=== PATIENT | female | born 1985 | race Caucasian/White ===

== ENCOUNTER → 2017-10-30 11:00 | Outpatient (CLI) | payer BC, SELFPAY ==
[2017-10-30 10:37] LABS: Hematocrit 36.7 % (37-47); Hemoglobin 12.3 g/dl (12.0-15.0); Mean Corp Hgb Conc 33.5 g/gl (32-36); Mean Corpuscular Hgb 31.9 pg (27.0-32.0); Mean Corpuscular Volume 95.3 fL (81-99); Mean Platelet Vol. 9.8 fl (6.2-12.0); Platelet Count 327 K/mm3 (150-450); RBC Distribution Width CV 13.8 % (11.6-14.6); RBC Distribution Width SD 46.2 fl (35.1-43.9); Red Blood Count 3.85 M/mm3 (4.2-5.4); Scan Indicated on CBC? Y/N NO; White Blood Count 8.9 K/mm3 (4.4-11.0)
[2017-10-30 10:56] LABS: Free T3 2.2 pg/mL (2.18-3.98); Glucose Challenge Gest 1H 50g 92 mg/dL (70-140); T4 Free Direct 0.76 ng/dL (0.76-1.46); Thyroid Stim Hormone (TSH) 3.85 uIU/mL (0.358-3.74)
== END ==
PROVIDERS: Family Provider Family Medicine; PCP Family Medicine; Visit Provider Obstetrics & Gynecology
DX: Z34.83 Encounter for supervision of other normal pregnancy, third trimester (principal)
CPT/HCPCS: 36415; 82950; 84439; 84443; 84481; 85027

== ENCOUNTER → 2017-12-24 16:30 | Outpatient (CLI) | payer BC, SELFPAY ==
--- NOTE | 2017-12-24 16:30 | DT_ITS ---
This patient was seen during an EMR downtime December 22, 2017 - December 29, 2017. This patient may have a combination of paper and electronic documentation or all paper documentation. All documentation is viewable within the e-chart portion of [facility] for each patient visit.
[2017-12-27 09:32] LABS: Group B Strep DNA By PCR Negative (Negative); Internal Control PASS; Probe Check PASS; Specimen Processing Control PASS
== END ==
PROVIDERS: Family Provider Family Medicine; PCP Family Medicine; Visit Provider Obstetrics & Gynecology
DX: Z34.83 Encounter for supervision of other normal pregnancy, third trimester (principal)
CPT/HCPCS: 87081; 87653

== ENCOUNTER 2018-01-17 22:18 | Inpatient (IN) | payer BC, SELFPAY ==
[2018-01-17] MEDS: Lactated Ringers 1,000 ML 50 ML IV (22:45)
[2018-01-17] MEDS: Oxytocin 30 units/NS 500 ml 30 UNITS/500 ML IV.SOLN 334 UNITS IV (23:09)
[2018-01-17 23:10] LABS: Hematocrit 37.9 % (37-47); Hemoglobin 13.2 g/dl (12.0-15.0); Mean Corp Hgb Conc 34.8 g/gl (32-36); Mean Corpuscular Hgb 32.3 pg (27.0-32.0); Mean Corpuscular Volume 92.7 fL (81-99); Mean Platelet Vol. 10.8 fl (6.2-12.0); Platelet Count 263 K/mm3 (150-450); RBC Distribution Width CV 13.4 % (11.6-14.6); RBC Distribution Width SD 44.6 fl (35.1-43.9); Red Blood Count 4.09 M/mm3 (4.2-5.4); White Blood Count 11.1 K/mm3 (4.4-11.0)
[2018-01-17 23:13] LABS: Scan Indicated on CBC? Y/N NO
--- NOTE | 2018-01-17 23:20 | PCM.OB.VAG ---
Vaginal Delivery Maternal Presentation: Active Labor, Spontaneous Rupture of Membranes Amniotic Membrane Rupture Type: Spontaneous at home Amniotic Fluid Description: Clear Final JARED: 01/22/18 Final JARED Source: US <20 weeks Gestational age: 39 Weeks and 2 Days Date of Procedure: 01/17/18 Pre-Operative Diagnosis: IUP Post-Operative Diagnosis: IUP Surgery/ Procedure Performed: Spontaneous Vaginal Delivery Type of Anesthesia: None Description of Procedure: Spontaneous vaginal delivery of a viable female from an occiput anterior presentation with clear amniotic fluid and normal three-vessel placenta. Cord around the neck ?1 tight. No episiotomy or laceration. Sponge counts okay. Delivery physician: Jair Zapata MD. Presentation: Vertex Placental Delivery Description: Spontaneous Placenta Disposition: [facility] Cord Vessel Description: 3 Vessels Cord Gases drawn per routine: ABG Cord Entanglement: Around neck x 1, tight Estimated Blood Loss: 250 cc Infant A gender: Female (1 minute): 8 (5 minute): 9 Episiotomy Description: None Laceration: None Medications given after delivery: IV Pitocin Complications: None
--- NOTE | 2018-01-17 23:24 | DCINST_ITS ---
Discharge Diet: No Restrictions Discharge Activity: May Shower, May Take a Tub Bath May resume sexual activity in: 4-6 weeks Additional Activity Instructions:: Nothing in the vagina for 4-6 weeks. You may return to work/school in 6 weeks. Call your doctor if you observe: Fever of 101 or Higher, Inability to urinate, Inability to have a bowel movement, Using more than one pad per hour Additional Instructions: If you experience any of the following, contact your healthcare provider. * Bleeding that soaks a pad every hour for 2 hours * Unrelieved incision or abdominal pain * Swelling, redness, discharge or bleeding from your incision or episiotomy site * Your incision begins to separate * Problems urinating (including inability to urinate or burning while urinating) . * Visual changes * Severe headache * Flu-like symptoms * Pain or redness in one of both of your breasts * Pain, warmth, tenderness or swelling in your legs, especially the calf area * Frequent nausea and vomiting * Symptoms of depression or anxiety If you experience any of the following, call 911 or go to the nearest Emergency Room. * Chest pain * Problems breathing * Seizure activity * Partial or complete paralysis of a body part, slurred speech, weakness or drooping of the face, or a sudden inability to walk or hold your balance Allergies/Adverse Reactions: Allergies No Known Allergies Allergy (Verified 06/05/15 02:49) Medications to take at Discharge Pantoprazole Sodium [Protonix] 20 mg PO QODAY 12/01/14 Docusate Sodium [Colace] 100 mg PO BID PRN PRN #30 capsule 06/05/15 Naproxen [Naprosyn] 1 - 2 tab PO BID PRN PRN #40 tablet 06/05/15 Vits [Prenatabs FA] 1 tablet PO DAILY 06/05/15 Ibuprofen [Motrin] 800 mg PO Q6H #60 tablet 06/07/15 Please Follow Up With: Fco Giraldo MD - [phone] When: Call to make an appointment with your doctor in 6 weeks. Primary Care Physician: Mir Méndez [Primary Care Provider] -
[2018-01-17] MEDS: Oxytocin 30 units/NS 500 ml 30 UNITS/500 ML IV.SOLN 167 UNITS IV (23:39)
[2018-01-18 00:38] VITALS: BMI 41.3
[2018-01-18 02:11] VITALS: BP 129/62; PULSE 70; RESP 18; TEMP 36.6; O2SAT 97
[2018-01-18 05:00] VITALS: BP 121/65; PULSE 72; RESP 18; TEMP 36.3; O2SAT 98
[2018-01-18 08:55] VITALS: BP 113/57; PULSE 85; RESP 16; TEMP 36.4; O2SAT 96
--- NOTE | 2018-01-18 09:20 | PCM.PN.OB ---
Subjective: Patient without complaints. Breast-feeding going well. - Physical Exam Vital Signs Temp Pulse Resp BP Pulse Ox 97.6 F L 85 16 113/57 L 96 01/18/18 08:55 01/18/18 08:55 01/18/18 08:55 01/18/18 08:55 01/18/18 08:55 Oxygen Delivery Method Room Air Weight: 267 lb 13.786 oz Body Mass Index (BMI) 41.3 Intake and Output for Last 24 Hours 01/16/18 01/17/18 01/18/18 23:59 23:59 23:59 Intake Total 1117 / 1117 Output Total 600 / 600 Balance 517 / 517 Laboratory Tests Past 24 Hrs 01/17/18 01/17/18 22:45 22:45 WBC 11.1 H RBC 4.09 L Hgb 13.2 Hct 37.9 MCV 92.7 MCH 32.3 H MCHC 34.8 RDW 13.4 RDW Differential 44.6 H Plt Count 263 MPV 10.8 Blood Type O POSITIVE Antibody Screen NEGATIVE Medical Necessity - Tobacco Use Smoking Status: Never smoker Assessment/Plan Doing well day #1. Continuing present care.
[2018-01-18 13:07] VITALS: BP 121/64; PULSE 80; RESP 16; TEMP 36.4; O2SAT 100
[2018-01-18 16:00] VITALS: BP 121/74; PULSE 80; RESP 18; TEMP 36.3; O2SAT 98
[2018-01-18 20:20] VITALS: BP 114/55; PULSE 77; RESP 18; TEMP 36.4
[2018-01-19 02:15] VITALS: BP 113/69; PULSE 75; RESP 20; TEMP 37
[2018-01-19 08:14] VITALS: BP 120/62; PULSE 86; RESP 16; TEMP 36.3; O2SAT 96
[2018-01-19] MEDS: Senna/Docusate Sodium 1 Tablet PO (09:59)
--- NOTE | 2018-01-19 10:02 | PCM.PN.OB ---
Subjective: No specific complaints. Breast feeding. Bleeding light Objective: Afeb VSS - Physical Exam General: Alert, Oriented x3, Cooperative, No apparent distress Lungs: Clear to auscultation, Normal air movement Cardiovascular: Regular rate, Regular Rhythm Abdomen: Soft, Non Tender, Non-Distended Extremities: No edema, No Calf Tenderness Skin: No rashes Neurological: Neuro grossly intact Psych/Mental Status: Normal Affect Comment: Lochia light Vital Signs Temp Pulse Resp BP Pulse Ox 97.3 F L 86 16 120/62 96 01/19/18 08:14 01/19/18 08:14 01/19/18 08:14 01/19/18 08:14 01/19/18 08:14 Oxygen Delivery Method Room Air Weight: 267 lb 13.786 oz Body Mass Index (BMI) 41.3 Intake and Output for Last 24 Hours 01/17/18 01/18/18 01/19/18 23:59 23:59 23:59 Intake Total 1117 / 1117 Output Total 600 / 600 Balance 517 / 517 Medical Necessity - Tobacco Use Smoking Status: Never smoker Assessment/Plan Doing well on PP day#2. Cleared for discharge home today. Home going instructions and warnings given.
--- NOTE | 2018-01-19 10:04 | PCM.DC.SUM ---
Discharge Date and Diagnosis Date of Admission: 01/17/18 Date of Discharge: 01/19/18 - Primary Discharge Diagnosis S/P Hospital Course and Treatment Consultations 01/17/18 22:43 Consult: Anesthesia Routine Comment: Reason For Exam: LABOR Operations: None Procedures: - - Summary of Care Provided: The patient is a 32 year old F [admitted in advanced active labor. Progressed rapidly to FD then pushed to deliver a live female without complication. Post course unremarkable. Discharged home on PP day#2.] Discharge Diet: No Restrictions Discharge Activity: May Shower, May Take a Tub Bath May resume sexual activity in: 4-6 weeks Additional Activity Instructions:: Nothing in the vagina for 4-6 weeks. You may return to work/school in 6 weeks. Call your doctor if you observe: Fever of 101 or Higher, Inability to urinate, Inability to have a bowel movement, Using more than one pad per hour Home Medications: Medications to take at Discharge Vits [Prenatabs FA] 1 tablet PO DAILY 06/05/15 Primary Care Physician: Mir Méndez [Primary Care Provider] - Please Follow Up With: Fco Giraldo MD - [phone] When: 6 weeks Disposition: Home Minutes spent on discharge:: 15 Patient Condition:: Good Medical Necessity - Tobacco Use Smoking Status: Never smoker Meaningful Use Info Meaningful Use Diagnoses (Choose all that apply): None applicable
[2018-01-19 14:00] VITALS: BP 129/83; PULSE 81; RESP 16; TEMP 36.3; O2SAT 97
--- NOTE | 2018-01-22 12:04 | NURSING ---
Called mother -mother states everything is going well. Baby nursing well with 4-9 stools and 6-8 wets. states lives in [place] and is going to the breast feeding center in [place] for assistance with sore nipples. Encouraged to seek assistance as needed and offered our services if desired. Mother's bleeding slow to nothing and no signs of high BP. Denies any symptoms of baby blues. Very happy with our services and care
== END 2018-01-19 18:15 | disposition home or self-care (01) | DRG 775 ==
PROVIDERS: Admitting Provider Obstetrics & Gynecology; Family Provider Family Medicine; PCP Family Medicine; Visit Provider Obstetrics & Gynecology
DX: O69.1XX0 Labor and delivery complicated by cord around neck, with compression, not applicable or unspecified (principal); Z3A.39 39 weeks gestation of pregnancy; Z37.0 Single live birth
CPT/HCPCS: 59025; 59050; 85027; 86850; 86900; 99218; J7120; G0378

== ENCOUNTER → 2018-08-19 17:01 | Outpatient (CLI) | payer BC, SELFPAY ==
[2018-08-19 18:00] LABS: Vitamin D,25 Hydroxy 29.4 ng/mL (29.95-100.01)
[2018-08-22 13:09] LABS: HPV HC, High Risk Negative (Negative)
== END ==
PROVIDERS: Visit Provider Obstetrics & Gynecology
DX: E55.9 Vitamin D deficiency, unspecified (principal); Z12.4 Encounter for screening for malignant neoplasm of cervix
CPT/HCPCS: 82306; 87624; 88175; G0145

== ENCOUNTER → 2018-11-05 | Outpatient (CLI) | payer BC, SELFPAY ==
[2018-11-05 16:40] LABS: Chlamydia Trachomatis by PCR Negative (Negative); Neisserai gonorrhoeae by PCR Negative (Negative); Probe Check PASS; Sample Adequacy Control PASS; Specimen Processing Control PASS
== END | disposition home or self-care (01) ==
LOC: LABSPEC 12:04
PROVIDERS: Visit Provider Obstetrics & Gynecology
DX: Z11.3 Encounter for screening for infections with a predominantly sexual mode of transmission (principal)
CPT/HCPCS: 87491; 87591

== ENCOUNTER → 2018-11-18 | Outpatient (CLI) | payer BC, SELFPAY ==
[2018-11-18 17:41] LABS: Absolute Lymphocyte Count 1.97 X10^3/ul (0.83-4.51); Absolute Neutrophil Count 8.6 X10^3/uL (2.0-7.7); Basophil# 0.04 X10^3/uL; Basophil% 0.3 % (0-1); Eosinophil# 0.06 X10^3/uL; Eosinophils% 0.5 % (0-5); Hematocrit 40.1 % (37-47); Hemoglobin 13.6 g/dl (12.0-15.0); Lymphocyte # 1.97 X10^3/ul (4.0); Mean Corp Hgb Conc 33.9 g/gl (32-36); Mean Corpuscular Hgb 30.5 pg (27.0-32.0); Mean Corpuscular Volume 89.9 fL (81-99); Mean Platelet Vol. 9.8 fl (6.2-12.0); Monocyte% 7.8 % (0-10); Neutrophil # 8.59 X10^3/uL (2.7-7.7); Neutrophil % 74.2 % (47-70); POSITIVE COUNT NO; POSITIVE DIFFERENTIAL NO; POSITIVE MORPHOLOGY NO; Platelet Count 425 K/mm3 (150-450); RBC Distribution Width CV 13.1 % (11.6-14.6); RBC Distribution Width SD 42.8 fl (35.1-43.9); Red Blood Count 4.46 M/mm3 (4.2-5.4); White Blood Count 11.6 K/mm3 (4.4-11.0)
[2018-11-18 17:49] LABS: Color, Urine Yellow (Yellow); Glucose, Dipstick Normal (Normal); Ketone-Dipstick Negative (Negative); Leukocyte Esterase-Dipstick 100 /ul (Negative); Nitrite-Dipstick Negative (Negative); Occult Blood-Urine Negative /ul (Negative); Protein-Dipstick Negative (Negative); Urine Bilirubin Dipstick Negative (Negative); Urine Clarity Sl. Cloudy (Clear); Urine Urobilinogen Normal (Normal)
[2018-11-18 18:11] LABS: Amphetamine Urine VISTA NEGATIVE (<1000 ng/mL); Barbiturate Urine VISTA NEGATIVE (< 200 ng/mL); Benzodiazepine Urine VISTA NEGATIVE (< 200 ng/mL); Cocaine Urine VISTA NEGATIVE (< 300 ng/mL); Ecstacy Urine VISTA NEGATIVE (< 500 ng/mL); Methadone Urine VISTA NEGATIVE (< 300 ng/mL); PCP Urine VISTA NEGATIVE (< 25 ng/mL); THC Urine VISTA NEGATIVE (< 50 ng/mL); Vista UDS pH Range 5
[2018-11-18 18:12] LABS: Thyroid Stim Hormone (TSH) 7.43 uIU/mL (0.358-3.74)
[2018-11-18 18:38] LABS: COTININE Drug Screen Negative (<200 ng/mL)
[2018-11-18 18:50] LABS: HIV - WCH Non-Reactive (Nonreactive); Rubella IgG 92.5 IU/mL
[2018-11-19 10:32] LABS: Free T3 2.6 pg/mL (2.18-3.98); T4 Free Direct 0.75 ng/dL (0.76-1.46)
[2018-11-20 01:35] LABS: Prenatal RPR NONREACTIVE (NONREACTIVE)
[2018-11-20 12:23] LABS: HEPATITIS B SURFACE AG Negative (Negative); Hep C Antibodies <0.1 s/co ratio (0.0-0.9)
== END | disposition home or self-care (01) ==
PROVIDERS: Visit Provider Obstetrics & Gynecology
DX: Z34.81 Encounter for supervision of other normal pregnancy, first trimester (principal)
CPT/HCPCS: 36415; 80307; 81002; 84439; 84443; 84481; 85025; 86703; 86762; 86803; 87340

== ENCOUNTER → 2019-01-20 | Outpatient (CLI) | payer BC, SELFPAY ==
[2019-01-20 12:39] LABS: Free T3 2.7 pg/mL (2.18-3.98); T4 Free Direct 0.76 ng/dL (0.76-1.46); Thyroid Stim Hormone (TSH) 7.02 uIU/mL (0.358-3.74)
== END | disposition home or self-care (01) ==
LOC: WOBLAB 11:34
PROVIDERS: Visit Provider Obstetrics & Gynecology
DX: Z34.82 Encounter for supervision of other normal pregnancy, second trimester (principal)
CPT/HCPCS: 36415; 84439; 84443; 84481

== ENCOUNTER 2019-03-28 19:12 | Emergency (ER) | payer BC, SELFPAY ==
[2019-03-28 19:13] VITALS: BP 114/65; PULSE 90; RESP 16; TEMP 36.6; O2SAT 99; BMI 38.2
--- NOTE | 2019-03-28 19:33 | ED.DCSUM_ITS ---
- ER Visit Summary Date of Service: 03/28/19 Chief Complaint: Right leg redness History of Present Illness: The patient is a 33 F who is 27 weeks . She presents with a red area to her proximal right calf for a few days. This is painful and slightly swollen. No history of DVTs. Patient is having movements and no abdominal pain, cramping, discharge, or bleeding. Physical Examination: Patient has an area about the size of her open hand to her right proximal and lateral calf which is erythematous, tender, and slightly indurated. The remainder of her exam is unremarkable. Test Results: Ultrasound is not available at this time. Emergency Department Course and Treatment: The area was marked with a pen. I suspect she may have a cellulitis or early abscess. I also considered thrombus. I suspect this is more likely a superficial thrombus and not a deep venous thrombus, but ultrasound is not available at this time. Since I have low suspicion for DVT, I will refer her for outpatient DVT tomorrow . I placed an order and gave her a paper order as well as the follow-up paperwork. In case this is cellulitis, I will start her on clindamycin. Follow-up with her [employer] for results and for further management. Return if worse or if new symptoms develop. Treatment Plan: As above Disposition: Discharge Impression: Right leg redness This note was generated with [employer] dictation software. It may contain incorrect words, spelling, and punctuation that were not noted in review of the chart prior to signing ED Disposition - Plan for ED Patient: Disposition: Home or Assisted Living Instructions: Cellulitis Prescriptions: Clindamycin HCl [Cleocin] 300 mg PO Q6H #40 cap Prescription Printed Referrals: Jair Zapata MD [STAFF PHYSICIAN] -
[2019-03-28 21:14] VITALS: BP 112/70; PULSE 67; RESP 20; O2SAT 97
== END 2019-03-28 21:15 | disposition home or self-care (01) ==
LOC: ED 19:44
PROVIDERS: Emergency Provider Emergency Medicine
DX: O26.892 Other specified pregnancy related conditions, second trimester (principal); L53.9 Erythematous condition, unspecified; Z3A.27 27 weeks gestation of pregnancy
CPT/HCPCS: 96365; 99284; J7040; A4216

== ENCOUNTER → 2019-03-29 | Outpatient (CLI) | payer BC, SELFPAY ==
[2019-03-28 19:13] VITALS: BMI 38.2
--- NOTE | 2019-03-29 13:54 | VDLE_ITS ---
Reason For Study: RLE redness and swelling RIGHT LEFT GSV is normal. CFV is compressible, spontaneous, phasic, CFV is compressible, spontaneous, phasic, competent, and demonstrates normal competent and demonstrates normal augmentation. augmentation. FV is compressible, spontaneous, phasic, competent and demonstrates normal augmentation. POP V is compressible, spontaneous, phasic, competent and demonstrates normal augmentation. T/P Trunk is compressible. PTV is compressible. RT PerV is compressible. Varicosities noted in the lateral proximal calf area with hyperechoic echoes C/W superficialthrombophlebitis. Procedure Exam performed in department. The exam was diagnostic. A preliminary report was called and/or faxed to ED & DR. Zapata. PT instructed by ED to F/U with Dr. Zapata since she has no PCP and sees Dr. Zapata at this time due to . Voicemail left on nurses line at 2:30 pm @ [phone]. Interpretation Summary Deep veins of the right lower extremity are patent and compressible segmentally. There is no evidence of right lower extremity deep vein thrombosis. Valvular competence appears intact within the proximal deep venous system on the right . The right great saphenous vein appears patent and compressible segmentally. Acute superficial thrombophlebitis is noted involving superficial varicosities in the proximal portion of the right lateral calf. Ordering Physician: Armando Lyles Referring Physician: Jair Zapata Performed By: Vee Ferraro, LUDWIG, RVT
== END | disposition home or self-care (01) ==
LOC: CVS 13:51
PROVIDERS: Referring Provider Emergency Medicine; Visit Provider Emergency Medicine
DX: M79.89 Other specified soft tissue disorders (principal); L53.9 Erythematous condition, unspecified
CPT/HCPCS: 93971

== ENCOUNTER → 2019-04-07 | Outpatient (CLI) | payer BC, SELFPAY ==
[2019-03-28 19:13] VITALS: BMI 38.2
[2019-04-07 10:56] LABS: Hematocrit 37.6 % (37-47); Hemoglobin 12.3 g/dL (12.0-15.0); Mean Corp Hgb Conc 32.7 g/dL (32-36); Mean Corpuscular Hgb 31.1 pg (27.0-32.0); Mean Corpuscular Volume 95.2 fL (81-99); Mean Platelet Vol. 10.3 fl (6.2-12.0); Platelet Count 269 K/mm3 (150-450); RBC Distribution Width CV 13.4 % (11.6-14.6); RBC Distribution Width SD 47.3 fl (35.1-43.9); Red Blood Count 3.95 M/mm3 (4.2-5.4); White Blood Count 9.4 K/mm3 (4.4-11.0)
[2019-04-07 11:27] LABS: Free T3 2.5 pg/mL (2.18-3.98); Glucose Challenge Gest 1H 50g 92 mg/dL (70-140); T4 Free Direct 0.79 ng/dL (0.76-1.46)
[2019-04-08 16:00] LABS: Thyroid Peroxidase AB 32 IU/mL (0-34)
== END | disposition home or self-care (01) ==
LOC: WOBLAB 09:55
PROVIDERS: Visit Provider Obstetrics & Gynecology
DX: Z34.83 Encounter for supervision of other normal pregnancy, third trimester (principal)
CPT/HCPCS: 36415; 82950; 84439; 84443; 84481; 85027; 86376

== ENCOUNTER → 2019-06-02 | Outpatient (CLI) | payer BC, SELFPAY | END | disposition home or self-care (01) | LOC: WOBLAB 15:02 | PROVIDERS: Visit Provider Obstetrics & Gynecology | DX: Z36.85 Encounter for antenatal screening for Streptococcus B (principal) | CPT/HCPCS: 87081 ==

== ENCOUNTER 2019-06-29 05:05 | Inpatient (IN) | payer BC, SELFPAY ==
[2019-06-29 05:30] VITALS: BMI 39.4
[2019-06-29] MEDS: Lactated Ringers 1,000 ML 999 ML IV (05:30)
[2019-06-29 05:50] LABS: Absolute Lymphocyte Count 1.84 X10^3/uL (0.83-4.51); Absolute Neutrophil Count 7.8 X10^3/uL (2.0-7.7); Basophil# 0.04 X10^3/uL; Basophil% 0.4 % (0-1); Eosinophils% 2.7 % (0-5); Hematocrit 40.5 % (37-47); Hemoglobin 13.4 g/dL (12.0-15.0); Lymphocyte # 1.84 X10^3/ul (4.0); Lymphocyte % 16.5 % (19-41); Mean Corp Hgb Conc 33.1 g/dL (32-36); Mean Corpuscular Hgb 31.2 pg (27.0-32.0); Mean Corpuscular Volume 94.2 fL (81-99); Mean Platelet Vol. 9.8 fl (6.2-12.0); Monocyte# 1.04 X10^3/uL; Monocyte% 9.3 % (0-10); NRBC Flagged by Analyzer 0 % (0-5); Neutrophil # 7.84 X10^3/uL (2.7-7.7); Neutrophil % 70.2 % (47-70); Platelet Count 319 K/mm3 (150-450); RBC Distribution Width SD 44.7 fl (35.1-43.9); White Blood Count 11.2 K/mm3 (4.4-11.0)
--- NOTE | 2019-06-29 05:57 | PCM.HP.OB ---
- Problem List (1) 39 weeks gestation of Status: Acute History Date of Admission: 06/29/19 Final JARED: 06/30/19 Final JARED Source: US <20 weeks Gestational age: 39 Weeks and 6 Days History of this : This is a 34 year-old, G [], P [], at 39 weeks gestational age. Allergies No Known Allergies Allergy (Verified 01/18/18 00:36) Home Medications: Home Medications Vits [Prenatabs FA] 1 tablet PO DAILY 06/05/15 Clindamycin HCl [Cleocin] 300 mg PO Q6H #40 cap 03/28/19 Levothyroxine [Synthroid] 50 mcg PO DAILY 06/29/19 Omeprazole [Prilosec] 20 mg PO DAILY 06/29/19 Smoking Status: Never smoker Alcohol: None Number of Fetus(es): 1 NST - FHR Rate Baby A Baseline: 145 Variability:: Moderate Accelerations:: 15 x 15 Decelerations:: None NST Reactive:: Yes FHR Category:: Category I Uterine Activity:: Q1-3 minutes History Past Pregnancies: 06/05/15 SROM 37 1/7 wk female 01/17/18 female Labs: Mom's Labs & Results 06/29/19 06/29/19 05:31 05:31 WBC 11.2 H RBC 4.30 Hgb 13.4 Hct 40.5 MCV 94.2 MCH 31.2 MCHC 33.1 RDW Std Deviation 44.7 H RDW Coeff of Marcelina 13.0 Plt Count 319 MPV 9.8 Immature Gran % (Auto) 0.900 Neut % (Auto) 70.2 H Lymph % (Auto) 16.5 L [place] % (Auto) 9.3 Eos % (Auto) 2.7 Baso % (Auto) 0.4 Absolute Neuts (auto) 7.8 H Absolute Lymphs (auto) 1.84 Nucleated RBC % 0 Blood Type Pending Antibody Screen Pending Course Did the patient receive Yes care? Labs Blood Type: O RH: POSITIVE RPR/VDRL/Syphilis Nonreactive Rubella status Immune HbSAg Negative Date Done: 11/18/18 Chlamydia Negative Gonorrhea Negative HIV/AIDS Non-Reactive Group B Strep: Negative Current Obstetrical History Gestational Diabetes No Incompetent Cervix No Infertility No IUGR No Macrosomia No Hypertension/Pre-eclampsia No Placenta Previa/Abruption No PTL/PROM No Uterine anomaly No Oligohydramnios No Polyhydramnios No Multiple gestation No Past Medical History Asthma No Diabetes No Hypertension No Heart disease No Mitral valve prolapse No Neurologic/Seizure disorder/ No Migraines Kidney disease No Liver disease No Varicosities Yes Clotting disorders/Hx of DVT No Thyroid Dysfunction Yes: hypothyroidism during Other medical diseases No Psychiatric disorders No Major trauma No Abnormal PAP smear No Sleep apnea No Mammogram in the last 2 years No Social History Alleged father Matt Hx Smoking No Smoking Status Never smoker How long have you used pt denies substances (years)? Expected Infant Delivery Method: Spontaneous Vaginal Number of Visits: 12 Review of Systems Constitutional: Denies: Chills, Fever, Weight Change HEENT: Denies: Head Aches, Sinus Congestion, Sinus Drainage Cardiovascular: Denies: Chest Pain, Palpitations Respiratory: Denies: Cough, Shortness of breath at rest, Sputum production Gastrointestinal: Denies: Abdominal Pain, Nausea, Vomiting Genitourinary: Denies: Dysuria Musculoskeletal: Denies: Joint Pain, Joint Tenderness Skin: Denies: Rash, Wounds Neurological: Denies: Numbness, Tingling, Focal weakness Psychiatric: Denies: Anxiety, Depression, Homicidal Ideations, Suicidal Ideations Hematologic/ Lymphatic: Denies: Easy Bruising, Easy Bleeding Physical Exam General: Alert, Oriented x3, No apparent distress HEENT: Atraumatic, Normocephalic. Negative for: Thyromegaly, Lymphadenopathy Cardiovascular: Regular rate, Regular Rhythm Lungs: Clear to auscultation Abdomen: Bowel Sounds Present, Gravid Neurological: Deep Tendon Reflexes 2+/4 and Symmetrical, Neuro grossly intact OPERATIONS OFFICER AFLOAT: Normal external genitalia. Negative for: Vulvar lesions Estimated gestational size: Appropriate for gestational size Presentation: Cephalic Cervix Dilation (cm): 8 Station: -1 Effacement (%): 75 Assessment/Plan All Active Problems 39 weeks gestation of (Acute) A: This is a 34 year-old, G [3], P [2], at 39 weeks gestational age. Spontaneous labor with contractions starting last evening, reports SROM at 0400 SVE 8/75/-1 per RN report with forebag NST Baseline 145, + accels - decels, moderate variability, Category 1 Active labor with UC Q1-3 minutes P: Continue labor with pain medication options per patient wishes Expect vaginal delivery
[2019-06-29] MEDS: Methylergonovine 0.2 MG/ML Ampul IM (06:27)
[2019-06-29] MEDS: Oxytocin 30 units/NS 500 ml 30 UNITS/500 ML IV.SOLN 334 UNITS IV (06:39)
--- NOTE | 2019-06-29 07:12 | PCM.OPRPT ---
Problem List (1) 39 weeks gestation of Status: Acute Vaginal Delivery Maternal Presentation: Active Labor, Spontaneous Rupture of Membranes Amniotic Membrane Rupture Type: Spontaneous at home Rupture of Membrane time: 0400 Amniotic Fluid Description: Clear Final JARED: 06/30/19 Final JARED Source: US <20 weeks Gestational age: 39 Weeks and 6 Days Date of Procedure: 06/29/19 Pre-Operative Diagnosis: 39 weeks gestation Post-Operative Diagnosis: S/P Surgery/ Procedure Performed: Spontaneous Vaginal Delivery Type of Anesthesia: None Description of Procedure: Called to delivery with head at 0 station, urge to push. Sitting on side of bed with anesthesiology at bedside attempting epidural. Patient yelled that she couldn't wait. Assisted back into bed to push without receiving epidural. Using nitrous oxide throughout pushing. Pushed well, head delivered OA to JEANINE with snug shoulders delivered by maternal efforts with McRobert's position after 25 seconds. Viable female placed on mothers abdomen. Apgars 8/9. Pitocin started with delivery of infant. Cord clamped x2 by CNM and cut by FOB. Cord blood collected. Before delivery of placenta, IM Methergine given in maternal left thigh. Placenta delivered spontaneously with gentle traction in Hopkins mechanism, intact, appearing 3 vessel cord, central insertion, fundal massage provided until firm. No lacerations noted. EBL 250. Sponge and instrument count correct x 2 with RN. Presentation: Vertex, JEANINE Placental Delivery Description: Spontaneous Placenta Disposition: [facility] Cord Vessel Description: 3 Vessels Cord Entanglement: None Estimated Blood Loss: 250 A gender: Female (1 minute): 8 (5 minute): 9 Episiotomy Description: None Laceration: None Medications given after delivery: IV Pitocin, IM Methergin
--- NOTE | 2019-06-29 07:18 | DCINST_ITS ---
Discharge Diet: No Restrictions Discharge Activity: Return to Normal Activity, May not drive while taking narcotic pain medications., May Shower May resume sexual activity in: 4-6 weeks Additional Activity Instructions:: Nothing in the vagina for 4-6 weeks. You may return to work/school in 6 weeks. Additional Instructions: If you experience any of the following, contact your healthcare provider. * Bleeding that soaks a pad every hour for 2 hours * Fever 100.4 or higher * Unrelieved incision or abdominal pain * Swelling, redness, discharge or bleeding from your incision or episiotomy site * Your incision begins to separate * Problems urinating (including inability to urinate or burning while urinating). * Visual changes * Severe headache * Flu-like symptoms * Pain or redness in one of both of your breasts * Pain, warmth, tenderness or swelling in your legs, especially the calf area * Frequent nausea and vomiting * Symptoms of depression or anxiety If you experience any of the following, call 911 or go to the nearest Emergency Room. * Chest pain * Problems breathing * Seizure activity * Partial or complete paralysis of a body part, slurred speech, weakness or drooping of the face, or a sudden inability to walk or hold your balance Allergies/Adverse Reactions: Allergies No Known Allergies Allergy (Verified 01/18/18 00:36) Medications to take at Discharge Vits [Prenatabs FA] 1 tablet PO DAILY 06/05/15 Clindamycin HCl [Cleocin] 300 mg PO Q6H #40 cap 03/28/19 Levothyroxine [Synthroid] 50 mcg PO DAILY 06/29/19 Omeprazole [Prilosec] 20 mg PO DAILY 06/29/19 Please Follow Up With: Alia Mckenna CNM When: Call to make an appointment with your doctor in 6 weeks. Primary Care Physician: Care Physician,No Primary [Primary Care Provider] - Test Results: Test results from this visit will be discussed in further detail at your follow- up appointment, if applicable. Proposed Discharge Date: 07/01/19
[2019-06-29] MEDS: Ibuprofen 600 MG Tablet PO ×2 (07:52→18:02)
[2019-06-29] MEDS: Levothyroxine 50 MCG Tablet PO (08:20)
[2019-06-29 11:16] VITALS: BP 131/66; PULSE 80; RESP 18; TEMP 36.8
[2019-06-29 12:35] VITALS: BP 129/69; PULSE 96; RESP 20; TEMP 36.5
[2019-06-29 16:30] VITALS: BP 126/67; PULSE 88; RESP 16; TEMP 36.6
[2019-06-29 20:00] VITALS: BP 112/66; PULSE 83; RESP 16; TEMP 36.7
[2019-06-29 23:58] VITALS: BP 111/47; PULSE 76; RESP 16; TEMP 36.7
[2019-06-30 03:50] VITALS: BP 116/68; PULSE 72; RESP 16; TEMP 37.2
[2019-06-30] MEDS: Levothyroxine 50 MCG Tablet PO (06:42)
[2019-06-30] MEDS: Ibuprofen 600 MG Tablet PO (06:45)
[2019-06-30 07:55] VITALS: BP 110/68; PULSE 80; RESP 16; TEMP 36.3
--- NOTE | 2019-06-30 08:21 | DS.PCM_ITS ---
Discharge Date and Diagnosis - Problem List Patient Problems: Active and Suspected Problems 39 weeks gestation of (Acute) Date of Admission: 06/29/19 Date of Discharge: 06/30/19 - Primary Discharge Diagnosis Active and Suspected Problems 39 weeks gestation of (Acute) Hospital Course and Treatment Operations: None Summary of Care Provided: The patient is a 34 year old F [] Patient Problems: Active and Suspected Problems 39 weeks gestation of (Acute) Subjective: Feeling well with moderate cramping. Is taking Motrin and Tylenol. Wants to continue Colace and Synthroid at home. Wishes to discharge today. Daughter is well and she was able to get some sleep. Objective: VSS. Fundus u/1. female well. Daughter is 10#3oz and might need bilirubin checked again. Feels well. Ready to discharge. - Physical Exam Vitals/I&O's: Vital Signs Temp Pulse Resp BP 97.3 F L 80 16 110/68 06/30/19 07:55 06/30/19 07:55 06/30/19 07:55 06/30/19 07:55 Oxygen Delivery Method Room Air Weight: 121 kg Body Mass Index (BMI) 39.4 Intake and Output for Last 24 Hours 06/28/19 06/29/19 06/30/19 23:59 23:59 23:59 Intake Total 2065.75 / 2065.75 Output Total 300 / 300 Balance 1765.75 / 1765.75 General: Alert, Oriented x3, Cooperative HEENT: Atraumatic, PERRLA, EOMI, Normocephalic Neck: Supple, No JVD, Negative Carotid Bruits Lungs: Clear to auscultation, Normal air movement Cardiovascular: Regular rate, No murmurs Abdomen: Bowel Sounds Present, Soft, Non Tender, Passing Flatus, - - fundus u/1 Extremities: No edema, Capillary Refill Less than 3 Seconds Skin: No rashes, No breakdown Musculoskeletal: No Tenderness to Palpation of Joints or Extremities Neurological: Cranial nerves II-XII grossly intact Psych/Mental Status: Normal Affect, Appropriate Current Medications Acetaminophen (Tylenol) 1,000 mg PO Q8H PRN PRN PRN Reason: Pain Score 1-3/10 Bisacodyl (Dulcolax) 10 mg RECTAL UD PRN PRN Reason: If no BM Dibucaine (Dibucaine) 1 applic TOPICAL TID PRN PRN; Protocol PRN Reason: Discomfort Hydrocortisone (Hytone) 1 applic TOPICAL TID PRN PRN; Protocol PRN Reason: Discomfort Ibuprofen (Motrin) 600 mg PO Q6H PRN PRN PRN Reason: Pain Score 1-3/10 Last Admin: 06/30/19 06:45 Dose: 600 mg Documented by: Levothyroxine Sodium (Synthroid) 50 mcg PO DAILY@0600 [facility] Last Admin: 06/30/19 06:42 Dose: 50 mcg Documented by: Methylergonovine Maleate (Methergine) 0.2 mg IM X1 PRN PRN Reason: Excess bleeding/uterine atony Last Admin: 06/29/19 06:27 Dose: 0.2 mg Documented by: Ondansetron HCl (Zofran) 4 mg IV Q4H PRN PRN PRN Reason: Nausea Oxycodone HCl (Oxyir) 5 - 10 mg PO Q4H PRN PRN PRN Reason: Pain Score 4-10/10 Pantoprazole Sodium (Protonix) 20 mg PO DAILY [facility] Last Admin: 06/29/19 11:15 Dose: Not Given Documented by: Multivit/Folic Acid/Iron (Prenatabs Fa) 1 tablet PO DAILY@1200 [facility] Last Admin: 06/29/19 12:26 Dose: Not Given Documented by: Senna/Docusate Sodium (Senokot-S, Sylwia-Colace) 1 - 2 tablet PO DAILY PRN PRN PRN Reason: Constipation Simethicone (Mylicon) 80 mg PO PCHS PRN PRN Reason: Indigestion/Stomach pain Sodium Chloride () 5 - 15 ml IV UD PRN PRN Reason: SALINE FLUSH Zolpidem Tartrate (Ambien (Generic)) 5 mg PO QHS PRN PRN PRN Reason: Insomnia Discharge Diet: No Restrictions Discharge Activity: Return to Normal Activity, May not drive while taking narcotic pain medications., May Shower May resume sexual activity in: 4-6 weeks Additional Activity Instructions:: Nothing in the vagina for 4-6 weeks. You may return to work/school in 6 weeks. Home Medications: Medications to take at Discharge Vits [Prenatabs FA ] 1 tablet PO DAILY 06/05/15 Clindamycin HCl [Cleocin] 300 mg PO Q6H #40 cap 03/28/19 Omeprazole [Prilosec] 20 mg PO DAILY 06/29/19 Levothyroxine [Synthroid] 50 mcg PO DAILY #30 tab 06/30/19 Senna/Docusate Sodium [Senokot-S] 1 - 2 tab PO DAILY PRN PRN #30 tab 06/30/19 Following Prescrptions Were Given to Patient: Senna/Docusate Sodium [Senokot-S] 1 - 2 tab PO DAILY PRN PRN #30 tab PRN Reason: Constipation Transmission Status: Pending to [facility] Levothyroxine [Synthroid] 50 mcg PO DAILY #30 tab Prescription Printed Primary Care Physician: Care Physician,No Primary [Primary Care Provider] - Please Follow Up With: Alia Mckenna CNM When: 6 weeks Disposition: Home Minutes spent on discharge:: 20 Patient Condition:: Good Medical Necessity - Tobacco Use Smoking Status: Never smoker Meaningful Use Info Meaningful Use Diagnoses (Choose all that apply): None applicable
[2019-06-30] MEDS: Acetaminophen 500 MG Tablet 1000 MG PO (09:21)
[2019-06-30 09:31] VITALS: BP 110/68; PULSE 80; RESP 16; TEMP 36.3
== END 2019-06-30 10:00 | disposition home or self-care (01) | DRG 807 ==
PROVIDERS: Admitting Provider Obstetrics & Gynecology; Referring Provider Obstetrics & Gynecology; Visit Provider Obstetrics & Gynecology
DX: O80 Encounter for full-term uncomplicated delivery (principal); Z37.0 Single live birth; Z3A.39 39 weeks gestation of pregnancy
CPT/HCPCS: 59025; 59050; 85025; 86850; 86900; 86901; 99218; J7120; G0378